=== PATIENT | male | born 1945 | race Caucasian/White ===

== ENCOUNTER 2017-06-13 12:48 | Emergency (ER) | payer MEDICARE, OTHER ==
[~2017-06-13] VITALS: Ht 177.8 cm; Wt 95.0 kg
[~2017-06-13 12:48] MED LIST: BENAZEPRIL10 MG PO; CIPROFLOXACN500 MG PO; DAPSONE100 MG PO; LORTAB 5 PO; LORTAB5 PO; MEDDOSEPAK PO; PREDNISONE5 MG PO; ZOFRAN ODT4 MG PO
[2017-06-13 14:27] VITALS: BP 140/72
== END 2017-06-13 14:35 | disposition home or self-care (01) ==
LOC: ED 12:48
DX: M72.2 Plantar fascial fibromatosis (principal); I10 Essential (primary) hypertension; M35.9 Systemic involvement of connective tissue, unspecified

== ENCOUNTER 2018-08-27 06:42 | Emergency (ER) | payer MEDICARE, OTHER ==
[~2018-08-27] VITALS: Ht 177.8 cm; Wt 100.0 kg
[2018-08-27 07:26] LABS: HEMATOCRIT 43.5 % (39.0-50.0); HEMOGLOBIN 14.6 g/dl (14.0-18.0); IMMATURE GRANULOCYTES 0.1 % (0.0-5.0); MEAN CELL VOLUME 96.7 fL CALC (80.0-100.0); MEAN CORPUSCULAR HGB 32.4 pG CALC (26.0-32.0); MEAN CORPUSCULAR HGB CONC 33.6 g/L CALC (32.0-36.0); NEUT# 4.77 thou/uL (1.82-7.42); RED BLOOD COUNT 4.5 mill/uL (4.70-6.10); RED CELL DISTRI WIDTH 12.3 % (11.5-15.5)
[2018-08-27] MEDS ORDERED: PROVENTIL108 MCG/AC IN (07:42)
[2018-08-27] MEDS ORDERED: TESSALON PER100 MG PO (07:42)
[2018-08-27] MEDS ORDERED: ZITHROMAX250 MG PO (07:42)
[2018-08-27 08:16] VITALS: BP 122/66
== END 2018-08-27 08:20 | disposition home or self-care (01) ==
LOC: ED 06:42
PROVIDERS: Family Medicine
DX: J40 Bronchitis, not specified as acute or chronic (principal); J06.9 Acute upper respiratory infection, unspecified; I10 Essential (primary) hypertension

== ENCOUNTER 2019-04-13 | Day surgery (SDC) | payer MEDICARE, OTHER ==
[~2019-04-13] MED LIST changes: +BENAZEPRIL20 M1 PO; +HYDROCHLOROT12.5 MG PO; +PROVENTIL108 MCG/AC IN; +TESSALON PER100 MG PO; +ZITHROMAX250 MG PO
== END 2019-04-13 10:20 | disposition home or self-care (01) ==
PROC: 0DJD8ZZ Inspection of Lower Intestinal Tract, Via Natural or Artificial Opening Endoscopic (ICD-10-PCS; principal; 2019-04-13)
DX: K57.30 Diverticulosis of large intestine without perforation or abscess without bleeding (principal); I10 Essential (primary) hypertension

== ENCOUNTER 2020-01-14 17:46 | Emergency (ER) | payer MEDICARE, OTHER ==
[~2020-01-14] VITALS: Ht 177.8 cm; Wt 95.0 kg
[2020-01-14] MEDS ORDERED: QUINAPRIL5 MG PO (18:28)
[2020-01-14] MEDS ORDERED: PLAVIX75 MG PO (18:28)
[2020-01-14] MEDS ORDERED: TOPROL XL25 M1 PO (18:28)
[2020-01-14] MEDS ORDERED: SIMVASTATIN10 MG PO (18:29)
[2020-01-14] MEDS ORDERED: FENOFIBRATE145 MG PO (18:29)
[2020-01-14] MEDS ORDERED: VITAMIN D5000 UNIT PO (18:30)
[2020-01-14] MEDS ORDERED: LEVOTHYROXIN125 MCG PO (18:30)
[2020-01-14 18:46] LABS: IMMATURE GRANULOCYTES 0.3 % (0.0-5.0); MEAN CELL VOLUME 93.8 fL CALC (80.0-100.0); MEAN CORPUSCULAR HGB 32.1 pG CALC (26.0-32.0); MEAN CORPUSCULAR HGB CONC 34.2 g/dL CAL (32.0-36.0); NEUT# 2.75 thou/uL (1.82-7.42); RED BLOOD COUNT 4.05 mill/uL (4.70-6.10); RED CELL DISTRI WIDTH 12.2 % (11.5-15.5)
[2020-01-14] MEDS ORDERED: BENAZEPRIL40 M1 PO (18:53)
[2020-01-14 19:09] LABS: ALKALINE PHOSPHATASE 65 u/l (38-126); BILIRUBIN, TOTAL 0.8 mg/dL (0.0-1.4); BUN 11 mg/dL (8-23); BUN/CREATININE RATIO 11 (12-20 (CALC)); C-REACTIVE PROTEIN 4.5 mg/dL (0-0.9); CHLORIDE 107 mmol/l (95-108); GFR > 60 ML/MIN (>=60 (CALC)); GFR FOR AFR.AMER. > 60 ML/MIN (>=60 (CALC)); POTASSIUM 3.9 mmol/l (3.5-5.1); SGOT/AST 38 u/l (19-48); SODIUM 138 mmol/l (137-146); TOTAL PROTEIN 6.9 g/dL (6.3-8.2)
[2020-01-14 19:18] LABS: ANION GAP 14 (6-22 (CALC)); CARBON DIOXIDE 21 mmol/l (22-30); MYOGLOBIN 38 ng/mL (0 - 121)
[2020-01-14] MEDS ORDERED: TESSALON PERLE100 MG PO (20:32)
[2020-01-14 20:49] VITALS: BP 121/77
== END 2020-01-14 20:49 | disposition home or self-care (01) ==
LOC: ED 17:46
PROVIDERS: Emergency Medicine
DX: U07.1 COVID-19 (principal); I10 Essential (primary) hypertension; Z87.01 Personal history of pneumonia (recurrent)